=== PATIENT | female | born 1955 ===

== ENCOUNTER 2017-04-20 13:11 | Emergency (ER) | payer SELFPAY ==
[2017-04-20 13:16] VITALS: BMI 38.2
[2017-04-20 13:17] VITALS: RESP 18; O2SAT 97
[2017-04-20] MEDS ORDERED: Aspirin 325 mg EC Tablets PO STA (13:37)
[2017-04-20 13:54] LABS: BASO # 0.2 K/uL (0.0-0.2); BASO % 1.4 % (0.0-2.0); EOS # 0.1 K/uL (0.0-0.7); EOS % 0.6 % (0.0-4.0); HEMOGLOBIN 13.3 g/dL (11.0-16.0); LYMPH # 2.4 K/uL (1.0-4.3); LYMPH % 17.8 % (20.0-40.0); MEAN CELL VOLUME 83.9 fL (81.0-99.0); MEAN CORPUSCULAR HEMOGLOBIN 27.1 pg (27.0-31.0); MEAN CORPUSCULAR HGB CONC 32.3 g/dL (33.0-37.0); MEAN PLATELET VOLUME 8.8 fL (7.2-11.7); MONO # 0.7 K/uL (0.0-0.8); MONO % 5.2 % (0.0-10.0); NRBC % 0.1 % (0.0-2.0); RBC 4.92 Mil/uL (3.80-5.20); RED CELL DISTRIBUTION WIDTH 14.4 % (11.5-14.5); WHITE BLOOD COUNT 13.3 K/uL (4.8-10.8)
[2017-04-20 14:02] LABS: ALBUMIN 3.9 g/dL (3.5-5.0)
[2017-04-20 14:04] LABS: GFR AFRICAN-AMERICAN > 60; GFR NON-AFRICAN AMERICAN 56
[2017-04-20 14:05] LABS: ALT/SGPT 34 U/L (9-52); AST/SGOT 24 U/L (14-36); BLOOD UREA NITROGEN 13 mg/dL (7-17)
[2017-04-20 14:06] LABS: CALCIUM 8.9 mg/dl (8.6-10.4)
[2017-04-20] MEDS ORDERED: Iodixanol 320 MG/ML 100 ML BOTTLE IV ONE (15:19)
--- NOTE | 2017-04-20 15:42 | CT ---
PROCEDURE: CT Chest with contrast (Pulmonary Angiogram) HISTORY: chest discomfort, + D-Dimer COMPARISON: Comparison is made to the previous study dated 06/16/2012 TECHNIQUE: Axial computed tomography images were obtained of the chest in the pulmonary arterial phase of enhancement. Coronal and sagittal reformatted images were created and reviewed. Intravenous contrast dose: 100 mL Visipaque 320 Radiation dose: Total exam DLP = 520.03 mGy-cm. This CT exam was performed using one or more of the following dose reduction techniques: Automated exposure control, adjustment of the mA and/or kV according to patient size, and/or use of iterative reconstruction technique. FINDINGS: PULMONARY ARTERIES: Unremarkable. No pulmonary embolism. AORTA: No acute findings. No thoracic aortic aneurysm. LUNGS: There are nonspecific small foci of ground-glass opacities at the mid and lower portion of the lungs. No evidence of pneumonia or suspicious mass. PLEURAL SPACES: Unremarkable. No effusion or pneuomothorax. HEART: Mild cardiomegaly is noted. No significant pericardial effusion. LYMPH NODES: No lymphadenopathy. BONES, CHEST WALL: Unremarkable. No fracture or destructive lesion OTHER FINDINGS: Small hiatus hernia is noted. IMPRESSION: No CTA evidence of pulmonary embolus. Mild cardiomegaly. Small nonspecific ground-glass opacities at the mid and posterior portions of the lungs may be due to mild pulmonary vascular congestion. Small hiatus hernia.
--- NOTE | 2017-04-20 15:51 | C.PDOC ---
History Of Present Illness 61 y/o female presents to ED c/o digitally reproducible chest discomfort for 2 days. Notes recent tx for asthma. Denies cough or heavy lifting. No rashes. Time Seen by Provider: 04/20/17 13:29 Chief Complaint (Nursing): Chest Pain History Per: Patient History/Exam Limitations: no limitations Onset/Duration Of Symptoms: Days Current Symptoms Are (Timing): Still Present Quality: "Pain" Associated Symptoms: denies: Dyspnea, Diaphoresis Exacerbating Factors: Other (palpation) Recent travel outside of the [place]: No Past Medical History Reviewed: Historical Data, Nursing Documentation, Vital Signs Vital Signs: Last Vital Signs Temp 98.5 F 04/20/17 16:02 Pulse 82 04/20/17 16:02 Resp 18 04/20/17 16:02 BP 107/60 04/20/17 16:02 Pulse Ox 97 04/20/17 16:02 - Medical History PMH: Asthma, Diabetes, HTN, Hyperlipidemia Family History: States: Unknown Family Hx - Social History Hx Tobacco Use: No Hx Alcohol Use: No Hx Substance Use: No - Immunization History Hx Tetanus Toxoid Vaccination: No Hx Influenza Vaccination: No Hx Pneumococcal Vaccination: No Review Of Systems Except As Marked, All Systems Reviewed And Found Negative. Constitutional: Negative for: Fever, Chills Cardiovascular: Negative for: Chest Pain, Palpitations Respiratory: Negative for: Cough, Shortness of Breath, Wheezing Gastrointestinal: Negative for: Nausea, Vomiting Musculoskeletal: Positive for: Other (chest wall pain ) Skin: Negative for: Rash Physical Exam - Physical Exam Appears: Non-toxic, No Acute Distress Skin: Normal Color, Warm, Dry, No Diaphoretic, No Rash Head: Atraumatic, Normacephalic Oral Mucosa: Moist Chest: Symmetrical, Tenderness (mild digitally reproducible tenderness of sternum ), No Ecchymosis Cardiovascular: Rhythm Regular, No Murmur Respiratory: Normal Breath Sounds, No Rales, No Rhonchi, No Wheezing Gastrointestinal/Abdominal: Soft, No Tenderness, No Guarding, No Rebound Back: Normal Inspection Extremity: Normal ROM, Capillary Refill (< 2 sec.) Neurological/Psych: Oriented x3, Normal Speech, Normal Cognition ED Course And Treatment - Laboratory Results Result Diagrams: 04/20/17 13:49 04/20/17 13:49 Lab Interpretation: Abnormal (d-dimer 249 H) ECG: Interpreted By Me ECG Rhythm: Sinus Rhythm ECG Interpretation: Normal Rate From EC O2 Sat by Pulse Oximetry: 97 Pulse Ox Interpretation: Normal - Radiology CXR: Interpreted by Me CXR Interpretation: Yes: No Acute Disease - Other Rad PE study CTA X-Ray: Read By Radiologist (no PE) Progress Note: bethany bronson ASA Reevaluation Time: 15:50 Reassessment Condition: Improved Medical Decision Making Medical Decision Making: mild leukocytosis due to chronic steroid use for asthma, not L-shifted no PE sternal discoimfort is positionally and digitally reproducable c/w Costochondritis. Disposition Doctor Will See Patient In The: Office Counseled Patient/Family Regarding: Studies Performed, Diagnosis - Disposition Referrals: [facility] [Outside] Disposition: HOME/ ROUTINE Disposition Time: 15:51 Condition: GOOD Additional Instructions: ibuprofeno 400-600 mg cada 6 horas para dolor del pecho Pepcid 20 mg en la noche para prevenir irritacion del estomago debido al ibuprofeno. Sigue en la [facility]. Instructions: Costochondritis (ED) Print Language: MALAWIAN - Clinical Impression Clinical Impression: Chest discomfort - Scribe Statement The provider has reviewed the documentation as recorded by the Scribpamela Wagner All medical record entries made by the Scribe were at my direction and personally dictated by me. I have reviewed the chart and agree that the record accurately reflects my personal performance of the history, physical exam, medical decision making, and the department course for this patient. I have also personally directed, reviewed, and agree with the discharge instructions and disposition.
[2017-04-20 16:03] VITALS: BP 107/60; PULSE 82; TEMP 98.5
--- NOTE | 2017-04-23 13:05 | CARD ---
APPROVED REPORT EKG Measurement Heart [id number] <Conclusion> Normal sinus rhythm Minimal voltage criteria for LVH, may be normal variant Nonspecific T wave abnormality Abnormal ECG
== END 2017-04-20 16:20 | disposition home or self-care (01) ==
LOC: C.ER 13:11
DX: R07.89 Other chest pain (principal)
CPT/HCPCS: 71275; 80053; 84484; 85025; 85378; 93005; 99284; Q9967

== ENCOUNTER 2017-12-19 09:38 | Emergency (ER) | payer SELFPAY ==
[2017-12-19 09:38] VITALS: BMI 38.2
[2017-12-19 09:55] VITALS: BP 138/86; PULSE 95; RESP 18; TEMP 98.2; O2SAT 97
[2017-12-19] MEDS ORDERED: Naproxen 550 mg Tab PO STA (10:02)
--- NOTE | 2017-12-19 10:04 | C.PDOC ---
History Of Present Illness 62 yo female, hx of htn, dm, presetns with left back pain, radiating down left leg, worse for last week. states remote hx of fall in october. no urinary changes, no hematuria, no saddle anesthesia. Time Seen by Provider: 12/19/17 09:47 Chief Complaint (Nursing): Back Pain Past Medical History Reviewed: Historical Data, Nursing Documentation, Vital Signs Vital Signs: Last Vital Signs Temp 98.2 F 12/19/17 09:46 Pulse 95 H 12/19/17 09:46 Resp 18 12/19/17 09:46 BP 138/86 12/19/17 09:46 Pulse Ox 97 12/19/17 11:47 - Medical History PMH: Asthma, Diabetes, HTN, Hyperlipidemia Family History: States: Unknown Family Hx - Social History Hx Tobacco Use: No Hx Alcohol Use: No Hx Substance Use: No - Immunization History Hx Tetanus Toxoid Vaccination: No Hx Influenza Vaccination: No Hx Pneumococcal Vaccination: No Review Of Systems Musculoskeletal: Positive for: Back Pain Physical Exam - Physical Exam Appears: Well, No Acute Distress, Other (morbidly obese) Skin: Normal Color, Warm, Dry Eye(s): bilateral: Normal Inspection, PERRL, EOMI Nose: Normal Throat: Normal Neck: Normal Cardiovascular: Rhythm Regular Respiratory: Normal Breath Sounds Gastrointestinal/Abdominal: Normal Exam Back: Normal Inspection, Paraspinal Tenderness (left) Extremity: Normal ROM Neurological/Psych: Normal Motor, Normal Sensation ED Course And Treatment O2 Sat by Pulse Oximetry: 97 Medical Decision Making Medical Decision Making: suspect sciatica. no saddle anesthesia, no urinary symptoms neuro intact. Disposition - Disposition Referrals: Replaced By [facility] [Outside] [facility] [Outside] [facility] [Outside] Timoteo Chaidez MD [Non-Staff] - Disposition: HOME/ ROUTINE Disposition Time: 11:47 Condition: STABLE Additional Instructions: please follow up with your doctor. return to er with worsening symptoms or concerns. Prescriptions: Cyclobenzaprine [Cyclobenzaprine HCl] 10 mg PO DAILY PRN #10 tab PRN Reason: Muscle Spasm Naproxen [Naprosyn] 500 mg PO BID PRN #14 tablet PRN Reason: Pain, Mild (1-3) Instructions: Low Back Pain (DC), Sciatica (DC), Sciatica Exercises Forms: [facility] ([place]) - Clinical Impression Clinical Impression: Sciatica
[2017-12-19] MEDS ORDERED: Naproxen 550 mg Tab PO ONE (10:24)
--- NOTE | 2017-12-19 11:15 | RAD ---
PROCEDURE: Radiographs of the Lumbar Spine. HISTORY: back pain COMPARISON: No prior. FINDINGS: BONES: Normal alignment. No listhesis. No fracture. DISC SPACES: Mild multilevel disc space narrowing with anterior endplate osteophytic changes. OTHER FINDINGS: None. IMPRESSION: No acute fracture. Multilevel degenerative changes.
== END 2017-12-19 11:19 | disposition home or self-care (01) ==
LOC: C.ER 09:38
DX: M54.30 Sciatica, unspecified side (principal); E11.9 Type 2 diabetes mellitus without complications; E78.5 Hyperlipidemia, unspecified; I10 Essential (primary) hypertension

== ENCOUNTER 2018-02-07 20:39 | Emergency (ER) | payer SELFPAY ==
[2018-02-07 21:11] VITALS: BMI 34.3
--- NOTE | 2018-02-07 21:21 | C.PDOC ---
History Of Present Illness Patient presents to the ER with a complaint of fever, headache, and left flank pain radiating down the left leg for the past 2 days. Patient reports she was diagnosed with sciatica 2 months ago. Patient is speaking in complete sentences and able to tolerate PO. Denies SOB, chest pain, nausea, or vomiting. Time Seen by Provider: 02/07/18 21:21 Chief Complaint (Nursing): Fever History Per: Patient History/Exam Limitations: no limitations Onset/Duration Of Symptoms: Days Current Symptoms Are (Timing): Still Present Location Of Pain: None Sick Contacts (Context): None Associated Symptoms: Fever, Other ((+) Headache, Left flank pain (-) chest pain , SOB). denies: Nausea, Vomiting Ear Symptoms: Bilateral: None Severity: Moderate Pain Scale Rating Of: 4 Past Medical History Reviewed: Historical Data, Nursing Documentation, Vital Signs Vital Signs: Last Vital Signs Temp 98.8 F 02/07/18 22:45 Pulse 90 02/07/18 22:45 Resp 18 02/07/18 22:45 BP 113/44 L 02/07/18 22:45 Pulse Ox 96 02/07/18 22:45 - Medical History PMH: Asthma, Diabetes, HTN, Hyperlipidemia Family History: States: No Known Family Hx - Social History Hx Tobacco Use: No Hx Alcohol Use: No Hx Substance Use: No - Immunization History Hx Tetanus Toxoid Vaccination: No Hx Influenza Vaccination: No Hx Pneumococcal Vaccination: No Review Of Systems Constitutional: Positive for: Fever Cardiovascular: Negative for: Chest Pain, Palpitations Respiratory: Negative for: Shortness of Breath Gastrointestinal: Negative for: Nausea, Vomiting Musculoskeletal: Positive for: Back Pain (left flank), Leg Pain (Left radiating from left flank) Physical Exam - Physical Exam Appears: Non-toxic Skin: Warm, Dry Head: Normacephalic Oral Mucosa: Moist Chest: Symmetrical, No Tenderness Cardiovascular: Rhythm Regular Respiratory: No Rales, No Rhonchi, No Wheezing Gastrointestinal/Abdominal: Soft, Tenderness (LLQ), No Guarding, No Rebound Back: No CVA Tenderness, Paraspinal Tenderness (Left flank), Straight Leg Raising (Positive at 35-40 degrees) Neurological/Psych: Oriented x3 ED Course And Treatment - Laboratory Results Result Diagrams: 02/07/18 21:47 02/07/18 21:47 O2 Sat by Pulse Oximetry: 98 (room air) Pulse Ox Interpretation: Normal Progress Note: Blood work, EKG, and urinalysis ordered. Protonix, toradol, and IV fluids administered. Reevaluation Time: 00:24 Reassessment Condition: Improved Medical Decision Making Medical Decision Making: Upon provider reevaluation patient is feeling better, is medically stable, and requires no further treatment in the ED at this time. Patient will be discharged home with Rx for tramadol . Counseling was provided and all questions were answered regarding diagnosis and need for follow up with the referred clinic. There is agreement to discharge plan. Return if symptoms persist or worsen. Disposition Counseled Patient/Family Regarding: Studies Performed, Diagnosis, Need For Followup, Rx Given - Disposition Referrals: [facility] [Outside] [facility] [Outside] Disposition: HOME/ ROUTINE Disposition Time: 21:21 Condition: FAIR Additional Instructions: Please return if symptoms recur Prescriptions: traMADol [Ultram] 50 mg PO TID PRN #15 tab PRN Reason: Pain, Severe (8-10) Instructions: Low Back Pain (DC), Back Exercises, Sciatica Exercises Forms: [facility] ([place]) Print Language: ITALIAN - Clinical Impression Clinical Impression: Sciatica, Low back pain - Scribe Statement The provider has reviewed the documentation as recorded by the Scribpamela Hanley All medical record entries made by the Zullyibe were at my direction and personally dictated by me. I have reviewed the chart and agree that the record accurately reflects my personal performance of the history, physical exam, medical decision making, and the department course for this patient. I have also personally directed, reviewed, and agree with the discharge instructions and disposition.
[2018-02-07] MEDS ORDERED: Sodium Chloride 0.9% 1,000 ML IV ONE (21:24)
[2018-02-07] MEDS ORDERED: Sodium Chloride 0.9% 1,000 ML ONE (21:47)
[2018-02-07 21:51] LABS: BASO % 0.7 % (0.0-2.0); EOS # 0.1 K/uL (0.0-0.7); EOS % 1.9 % (0.0-4.0); HEMOGLOBIN 12.6 g/dL (11.0-16.0); LYMPH # 0.4 K/uL (1.0-4.3); MEAN CELL VOLUME 83.7 fL (81.0-99.0); MEAN CORPUSCULAR HEMOGLOBIN 27.8 pg (27.0-31.0); MEAN CORPUSCULAR HGB CONC 33.2 g/dL (33.0-37.0); MEAN PLATELET VOLUME 8.9 fL (7.2-11.7); MONO # 0.5 K/uL (0.0-0.8); NEUT # 4.6 K/uL (1.8-7.0); NEUT % 81.4 % (50.0-75.0); NRBC % 0.1 % (0.0-2.0); PLATELET COUNT 235 K/uL (130-400); RBC 4.54 Mil/uL (3.80-5.20); RED CELL DISTRIBUTION WIDTH 14.2 % (11.5-14.5)
[2018-02-07 21:52] LABS: WHITE BLOOD COUNT 5.6 K/uL (4.8-10.8)
[2018-02-07 22:00] LABS: VENOUS BLOOD GAS BASE EXCESS 1.9 mmol/L (0.0-2.0); VENOUS BLOOD GAS PCO2 41 mmHg (40-60); VENOUS BLOOD GAS PO2 43 mm/Hg (30-55); VENOUS BLOOD PH 7.42 (7.32-7.43)
[2018-02-07 22:03] LABS: ALBUMIN 3.9 g/dL (3.5-5.0); CALCIUM 8.8 mg/dl (8.6-10.4); GFR AFRICAN-AMERICAN > 60; GFR NON-AFRICAN AMERICAN 56; LIPASE 75 U/L (23-300)
[2018-02-07 22:04] LABS: ALT/SGPT 53 U/L (9-52); AST/SGOT 65 U/L (14-36); BLOOD UREA NITROGEN 10 mg/dL (7-17)
[2018-02-07 22:38] LABS: EOSINOPHIL 3 % (0-4); LYMPHOCYTE 7 % (20-40); MONOCYTE 7 % (0-10); NEUTROPHIL 83 % (50-75); PLATELET ESTIMATE NORMAL (NORMAL); TOTAL CELLS COUNTED 100
[2018-02-07 22:55] LABS: URINE BACTERIA OCC (<OCC); URINE BILIRUBIN NEGATIVE (NEGATIVE); URINE CLARITY Clear (Clear); URINE COLOR Colorless (YELLOW); URINE GLUCOSE (UA) NORMAL (Normal); URINE LEUKOCYTE ESTERASE NEG Leu/uL (Negative); URINE PROTEIN NEGATIVE (NEGATIVE); URINE UROBILINOGEN NORMAL mg/dL (0.2-1.0)
[2018-02-07 22:57] LABS: URINE BLOOD TRACE (NEGATIVE)
[2018-02-07] MEDS ORDERED: Iohexol 300 100 ML IJ ONE (23:02)
[2018-02-08 00:42] VITALS: BP 99/51; PULSE 79; RESP 20; TEMP 98.2; O2SAT 100
--- NOTE | 2018-02-08 08:25 | CT ---
PROCEDURE: CT Abdomen and Pelvis without intravenous contrast HISTORY: Left lower quadrant abdominal pain COMPARISON: None. TECHNIQUE: Multiple contiguous axial images were performed through the abdomen and pelvis with intravenous contrast. Subsequently, sagittal and coronal reformatted images were obtained. Radiation dose: Total exam DLP = 1405 mGy-cm. This CT exam was performed using one or more of the following dose reduction techniques: Automated exposure control, adjustment of the mA and/or kV according to patient size, and/or use of iterative reconstruction technique. FINDINGS: LOWER THORAX: Small hiatal hernia. LIVER: Mild fatty infiltration of the liver. GALLBLADDER AND BILE DUCTS: Unremarkable. PANCREAS: Unremarkable. No gross lesion or ductal dilatation. SPLEEN: Unremarkable. ADRENALS: Unremarkable. No mass. KIDNEYS AND URETERS: Unremarkable. No hydronephrosis. No solid mass. VASCULATURE: Unremarkable. No aortic aneurysm. BOWEL: Unremarkable. No obstruction. No gross mural thickening. APPENDIX: No findings to suggest acute appendicitis. PERITONEUM: Unremarkable. No free fluid. No free air. LYMPH NODES: Unremarkable. No enlarged lymph nodes. BLADDER: Unremarkable. REPRODUCTIVE: Unremarkable. BONES: No acute fracture. OTHER FINDINGS: None. IMPRESSION: Negative acute. Small hiatal hernia. These findings were preliminarily reported at 11:46 p.m. on 02/07/[address] Manpreet Wilkerson from [facility].
== END 2018-02-08 00:45 | disposition home or self-care (01) ==
LOC: C.ER 20:39
DX: M54.42 Lumbago with sciatica, left side (principal)
CPT/HCPCS: 74177; 80053; 81001; 82803; 83690; 85025; 96374; 96375; 99285; C9113; J1885; J7040; Q9967